=== PATIENT | male | born 1995 | race Caucasian/White ===

== ENCOUNTER 2021-08-08 20:28 | Emergency (ER) | payer OTHER ==
[~2021-08-08] VITALS: Ht 121.9 cm; Wt 48.5 kg
[2021-08-08] MEDS ORDERED: LORazepam 2 MG/ML VIAL IVP ONE (21:00)
[2021-08-08] MEDS ORDERED: NACL 0.9% 1,000 ML IV ONE (21:00)
--- NOTE | 2021-08-08 21:00 | NUR ---
Patient to ER [facility] 3 BED to gown for evaluation. Side rails up. Report given to NICOLÁS CANTU
[2021-08-08 21:01] VITALS: BP_SYST 119
--- NOTE | 2021-08-08 21:05 | NUR ---
ER Dr. SCHULZ at bedside examining patient.
--- NOTE | 2021-08-08 21:30 | NUR ---
Pt in bed, on monitoring analyst. PIV placed right AC G20, IV fluid started. Medication given.
[2021-08-08 21:35] LABS: BASOPHILS % (AUTO) 0.2 % (0.0-2.0); HEMATOCRIT 42.4 % (36-54); HEMOGLOBIN 14.1 g/dL (14.0-18.0); LYMPHOCYTES # (AUTO) 1.2 K/uL (1.0-5.5); LYMPHOCYTES % (AUTO) 7.9 % (20.5-51.5); MEAN CORPUSCULAR HEMOGLOBIN 29 pg (27-31); MEAN CORPUSCULAR HGB CONC 33 % (32-36); MEAN CORPUSCULAR VOLUME 88 fL (79.0-98.0); MONOCYTES # (AUTO) 0.4 K/uL (0.0-1.0); MONOCYTES % (AUTO) 2.8 % (1.7-9.3); NEUTROPHILS # (AUTO) 13.5 K/uL (1.8-7.7); NEUTROPHILS % (AUTO) 89.1 % (40.0-70.0); PLATELET COUNT (AUTO) 500 K/uL (130-430); RED BLOOD CELL COUNT(AUTO) 4.82 MIL/uL (4.2-6.2); WHITE BLOOD COUNT (AUTO) 15.2 K/uL (4.8-10.8)
[2021-08-08 22:03] LABS: CALCIUM 9.2 mg/dL (8.4-11.0); CREATININE 0.82 mg/dL (0.55-1.30); POTASSIUM 3.5 mmol/L (3.5-5.1)
[2021-08-08 22:12] LABS: TOTAL BILIRUBIN 0.3 mg/dL (0.0-1.0)
--- NOTE | 2021-08-09 00:10 | NUR ---
at bedside for reassessment.
--- NOTE | 2021-08-09 00:30 | NUR ---
Pt denies any complaint at this time.
[2021-08-09 01:10] VITALS: BP_SYST 127
== END 2021-08-09 01:15 | disposition home or self-care (01) ==
LOC: SED 20:28
DX: R07.2 Precordial pain (principal); R00.2 Palpitations; F15.129 Other stimulant abuse with intoxication, unspecified
CPT/HCPCS: 36415; 71045; 80053; 84484; 85025; 93005 ×2; 96361; 96374; 99285; J2060; J7030